=== PATIENT | male | born 1975 | race Caucasian/White ===

== ENCOUNTER 2021-10-05 11:37 | Inpatient (IN) | payer OTHER ==
[2021-10-05] MEDS ORDERED: BISMUTH SUBSALICYLATE 262 MG/15 ML BTL PO PRN (13:22)
[2021-10-05] MEDS ORDERED: ACETAMINOPHEN 325 MG TABLET (FP) PO PRN ×2 (13:22)
[2021-10-05] MEDS ORDERED: MAGNESIUM HYDROX 2400MG/30ML ORAL SUSPENSION 30 ML CUP PO PRN (13:22)
[2021-10-05] MEDS ORDERED: MAGNESIUM CITRATE 300 ML BOTTLE PO PRN (13:22)
[2021-10-05] MEDS ORDERED: methaDONE HCL 10 MG TABLET (FOR DETOX USE ONLY) PO ONE (13:22)
[2021-10-05] MEDS ORDERED: MENTHOL/PHENOL 1 EACH UD MM PRN (13:22)
[2021-10-05] MEDS ORDERED: ONDANSETRON *ODT* 4 MG TABLET SL PRN (13:22)
[2021-10-05] MEDS ORDERED: MAG HYDROX/AL HYDROX/SIMETH 30 ML UNIT-DOSE CUP PO PRN (13:22)
[2021-10-05 13:47] VITALS: BMI 26.3
[2021-10-05] MEDS: METHOCARBAMOL 500 MG TABLET PO PRN (15:49)
[2021-10-05] MEDS: hydrOXYzine PAMOATE 25 MG CAPSULE (FP) PO SCH ×3 (15:50→22:10)
[2021-10-05 16:46] LABS: HEMATOCRIT 40.4 % (35.4-49); HEMOGLOBIN 13.5 GM/dL (11.7-16.9); MCH 27.7 pg (25.7-33.7); MCHC 33.4 g/dl (32.0-35.9); MEAN CELL VOLUME 82.9 fl (80-96); RBC 4.87 M/mm3 (4.00-5.60); RDW 14.1 % (11.9-15.9); WHITE BLOOD COUNT 6.5 K/mm3 (4.0-10.0)
[2021-10-05 16:53] LABS: CALCIUM 9.5 mg/dL (8.5-10.1)
[2021-10-05 16:54] LABS: BLOOD UREA NITROGEN 7.4 mg/dL (7-18)
[2021-10-05 16:57] LABS: CREATININE 0.7 mg/dL (0.55-1.3)
[2021-10-05 16:58] LABS: TOT PROT 8.2 g/dl (6.4-8.2)
[2021-10-05 16:59] LABS: BILIRUBIN,TOTAL 0.4 mg/dL (0.2-1)
[2021-10-05] MEDS: NICOTINE 10 MG CARTRIDGE (INHALER) IH PRN (21:33)
[2021-10-05] MEDS ORDERED: MELATONIN 5 MG TABLETS PO SCH (22:00)
[2021-10-05] MEDS: THIAMINE HCL 100 MG TABLET (FP) PO SCH (22:10)
[2021-10-05] MEDS: SUVOREXANT 10 MG TABLET PO PRN (22:10)
[2021-10-06] MEDS: hydrOXYzine PAMOATE 25 MG CAPSULE (FP) PO SCH ×5 (07:09→22:05)
[2021-10-06] MEDS ORDERED: methaDONE HCL 10 MG TABLET (FOR DETOX USE ONLY) ONE (09:44)
[2021-10-06] MEDS: PRENATAL VITAMINS W/ FOLIC ACID TABLET (FP) PO SCH (10:21)
[2021-10-06] MEDS: NICOTINE 10 MG CARTRIDGE (INHALER) IH PRN ×3 (10:23→21:55)
[2021-10-06] MEDS: IBUPROFEN 400 MG TABLET (FP) PO PRN ×2 (10:25→17:56)
[2021-10-06] MEDS: SUVOREXANT 10 MG TABLET PO PRN (22:06)
[2021-10-06] MEDS: METHOCARBAMOL 500 MG TABLET PO PRN (22:06)
[2021-10-06] MEDS: cloNIDine HCL 0.1 MG TABLET PO PRN (22:06)
[2021-10-06] MEDS: THIAMINE HCL 100 MG TABLET (FP) PO SCH (22:07)
[2021-10-07] MEDS: hydrOXYzine PAMOATE 25 MG CAPSULE (FP) PO SCH ×5 (06:50→22:12)
[2021-10-07] MEDS ORDERED: methaDONE HCL 10 MG TABLET (FOR DETOX USE ONLY) PO ONE (10:00)
[2021-10-07] MEDS: METHOCARBAMOL 500 MG TABLET PO PRN ×2 (10:09→17:42)
[2021-10-07] MEDS: IBUPROFEN 400 MG TABLET (FP) PO PRN ×2 (10:10→17:43)
[2021-10-07] MEDS: PRENATAL VITAMINS W/ FOLIC ACID TABLET (FP) PO SCH (10:35)
[2021-10-07] MEDS: NICOTINE 10 MG CARTRIDGE (INHALER) IH PRN ×2 (11:18→17:41)
[2021-10-07] MEDS: SUVOREXANT 10 MG TABLET PO PRN (22:11)
[2021-10-07] MEDS: THIAMINE HCL 100 MG TABLET (FP) PO SCH (22:14)
[2021-10-07] MEDS: cloNIDine HCL 0.1 MG TABLET PO PRN (23:55)
[2021-10-08] MEDS: hydrOXYzine PAMOATE 25 MG CAPSULE (FP) PO SCH ×5 (06:13→22:18)
[2021-10-08] MEDS ORDERED: methaDONE HCL 10 MG TABLET (FOR DETOX USE ONLY) ONE (08:37)
[2021-10-08] MEDS: PRENATAL VITAMINS W/ FOLIC ACID TABLET (FP) PO SCH (10:09)
[2021-10-08] MEDS: IBUPROFEN 400 MG TABLET (FP) PO PRN ×2 (10:10→18:16)
[2021-10-08] MEDS: NICOTINE 10 MG CARTRIDGE (INHALER) IH PRN ×2 (18:17→22:20)
[2021-10-08] MEDS: THIAMINE HCL 100 MG TABLET (FP) PO SCH (22:18)
[2021-10-08 23:00] VITALS: BP 132/70; PULSE 58; TEMP 98.2
[2021-10-09] MEDS ORDERED: methaDONE HCL 10 MG TABLET (FOR DETOX USE ONLY) PO ONE (10:00)
== END 2021-10-08 23:54 | disposition left against medical advice (07) | DRG 770 ==
LOC: YASAS 11:37 → Y3N 14:57
PROVIDERS: ADMIT Allergy & Immunology; ATTEND Allergy & Immunology
PROC: HZ2ZZZZ Detoxification Services for Substance Abuse Treatment (ICD-10-PCS; principal; 2021-10-05)
DX: F11.23 Opioid dependence with withdrawal (principal); F17.210 Nicotine dependence, cigarettes, uncomplicated; F19.282 Other psychoactive substance dependence with psychoactive substance-induced sleep disorder; M06.9 Rheumatoid arthritis, unspecified; Z88.6 Allergy status to analgesic agent; Z56.0 Unemployment, unspecified
CPT/HCPCS: 36415; 80053; 85027; 86780; 93005; 93010; C9803; J0735; U0003; U0005

== ENCOUNTER 2021-10-27 11:42 | Inpatient (IN) | payer OTHER ==
[2021-10-27] MEDS ORDERED: MAG HYDROX/AL HYDROX/SIMETH 30 ML UNIT-DOSE CUP PO PRN (12:20)
[2021-10-27] MEDS ORDERED: ONDANSETRON *ODT* 4 MG TABLET SL PRN (12:20)
[2021-10-27] MEDS ORDERED: NICOTINE 10 MG CARTRIDGE (INHALER) IH PRN (12:20)
[2021-10-27] MEDS ORDERED: MENTHOL/PHENOL 1 EACH UD MM PRN (12:20)
[2021-10-27] MEDS ORDERED: cloNIDine HCL 0.1 MG TABLET PO PRN (12:20)
[2021-10-27] MEDS ORDERED: MAGNESIUM HYDROX 2400MG/30ML ORAL SUSPENSION 30 ML CUP PO PRN (12:20)
[2021-10-27] MEDS ORDERED: methaDONE HCL 10 MG TABLET (FOR DETOX USE ONLY) PO ONE (12:20)
[2021-10-27] MEDS ORDERED: BISMUTH SUBSALICYLATE 262 MG/15 ML BTL PO PRN (12:20)
[2021-10-27] MEDS ORDERED: LOPERAMIDE HCL 2 MG CAPSULE PO PRN (12:20)
[2021-10-27] MEDS ORDERED: MAGNESIUM CITRATE 300 ML BOTTLE PO PRN (12:20)
[2021-10-27] MEDS ORDERED: ACETAMINOPHEN 325 MG TABLET (FP) PO PRN ×2 (12:20)
[2021-10-27 12:39] VITALS: BMI 26.2
[2021-10-27] MEDS ORDERED: methaDONE HCL 10 MG TABLET (FOR DETOX USE ONLY) ONE (12:57)
[2021-10-27] MEDS: PRENATAL VITAMINS W/ FOLIC ACID TABLET (FP) PO SCH (14:06)
[2021-10-27] MEDS: hydrOXYzine PAMOATE 25 MG CAPSULE (FP) PO SCH ×3 (14:25→23:33)
[2021-10-27] MEDS: METHOCARBAMOL 500 MG TABLET PO PRN (23:33)
[2021-10-27] MEDS: THIAMINE HCL 100 MG TABLET (FP) PO SCH (23:33)
[2021-10-27] MEDS: MELATONIN 5 MG TABLETS PO SCH (23:33)
[2021-10-28] MEDS: hydrOXYzine PAMOATE 25 MG CAPSULE (FP) PO SCH ×5 (06:56→23:01)
[2021-10-28] MEDS: IBUPROFEN 400 MG TABLET (FP) PO PRN (07:04)
[2021-10-28] MEDS ORDERED: methaDONE HCL 10 MG TABLET (FOR DETOX USE ONLY) ONE (09:07)
[2021-10-28] MEDS: METHOCARBAMOL 500 MG TABLET PO PRN (09:27)
[2021-10-28] MEDS: PRENATAL VITAMINS W/ FOLIC ACID TABLET (FP) PO SCH (09:32)
[2021-10-28] MEDS: THIAMINE HCL 100 MG TABLET (FP) PO SCH (23:00)
[2021-10-28] MEDS: MELATONIN 5 MG TABLETS PO SCH (23:00)
[2021-10-29] MEDS: METHOCARBAMOL 500 MG TABLET PO PRN (05:51)
[2021-10-29] MEDS: hydrOXYzine PAMOATE 25 MG CAPSULE (FP) PO SCH ×4 (05:51→23:06)
[2021-10-29] MEDS: IBUPROFEN 400 MG TABLET (FP) PO PRN (05:53)
[2021-10-29] MEDS ORDERED: methaDONE HCL 10 MG TABLET (FOR DETOX USE ONLY) PO ONE (10:00)
[2021-10-29] MEDS: PRENATAL VITAMINS W/ FOLIC ACID TABLET (FP) PO SCH (13:36)
[2021-10-29 14:06] LABS: SARS-CoV-2 NAA Not Detected (Not Detected)
[2021-10-29] MEDS: THIAMINE HCL 100 MG TABLET (FP) PO SCH (23:07)
[2021-10-29] MEDS: SUVOREXANT 15 MG TABLET PO PRN (23:12)
[2021-10-30] MEDS: METHOCARBAMOL 500 MG TABLET PO PRN (05:06)
[2021-10-30] MEDS: IBUPROFEN 400 MG TABLET (FP) PO PRN (05:06)
[2021-10-30] MEDS: hydrOXYzine PAMOATE 25 MG CAPSULE (FP) PO SCH ×5 (05:06→22:48)
[2021-10-30 10:39] LABS: ALBUMIN 3.4 g/dl (3.4-5.0)
[2021-10-30 10:42] LABS: CREATININE 0.8 mg/dL (0.55-1.3)
[2021-10-30 10:44] LABS: BILIRUBIN,TOTAL 0.4 mg/dL (0.2-1); TOT PROT 7.2 g/dl (6.4-8.2)
[2021-10-30] MEDS ORDERED: methaDONE HCL 10 MG TABLET (FOR DETOX USE ONLY) ONE (10:45)
[2021-10-30] MEDS: PRENATAL VITAMINS W/ FOLIC ACID TABLET (FP) PO SCH (10:48)
[2021-10-30 10:52] LABS: HEMATOCRIT 40.1 % (35.4-49); MCH 26.7 pg (25.7-33.7); MCHC 32.5 g/dl (32.0-35.9); MEAN CELL VOLUME 82.1 fl (80-96); MEAN PLT VOLUME 9.4 fl (7.5-11.1); PLATELET COUNT 210 10^3/uL (134-434); RBC 4.88 M/mm3 (4.00-5.60); RDW 14.2 % (11.9-15.9); WHITE BLOOD COUNT 4.3 K/mm3 (4.0-10.0)
[2021-10-30] MEDS: SUVOREXANT 15 MG TABLET PO PRN (22:44)
[2021-10-30] MEDS: THIAMINE HCL 100 MG TABLET (FP) PO SCH (22:44)
[2021-10-31] MEDS: hydrOXYzine PAMOATE 25 MG CAPSULE (FP) PO SCH ×2 (06:11→11:06)
[2021-10-31] MEDS: PRENATAL VITAMINS W/ FOLIC ACID TABLET (FP) PO SCH (09:44)
[2021-10-31] MEDS ORDERED: methaDONE HCL 10 MG TABLET (FOR DETOX USE ONLY) PO ONE (10:00)
[2021-10-31 13:14] VITALS: BP 132/68; PULSE 100; TEMP 97.1
== END 2021-10-31 13:28 | disposition home or self-care (01) | DRG 773 ==
LOC: YASAS 11:42 → Y6N 12:54
PROVIDERS: ADMIT Allergy & Immunology; ATTEND Allergy & Immunology
PROC: HZ2ZZZZ Detoxification Services for Substance Abuse Treatment (ICD-10-PCS; principal; 2021-10-27)
DX: F11.23 Opioid dependence with withdrawal (principal); F14.20 Cocaine dependence, uncomplicated; F12.20 Cannabis dependence, uncomplicated; F17.210 Nicotine dependence, cigarettes, uncomplicated; F19.282 Other psychoactive substance dependence with psychoactive substance-induced sleep disorder; U07.1 COVID-19; M06.9 Rheumatoid arthritis, unspecified; M54.30 Sciatica, unspecified side; Z88.6 Allergy status to analgesic agent
CPT/HCPCS: 36415; 80053; 85027; 86780; C9803; U0003; U0005

== ENCOUNTER 2022-12-21 09:33 | Inpatient (IN) | payer OTHER ==
[2022-12-21 09:59] VITALS: BMI 27.2
[2022-12-21] MEDS ORDERED: NALOXONE HCL (KLOXXADO) 8 MG SPRAY NS PRN (10:25)
[2022-12-21] MEDS ORDERED: COLLOIDAL OATMEAL 1 BAR EACH TP PRN (10:25)
[2022-12-21] MEDS ORDERED: IBUPROFEN 600 MG TABLET (FP) PO PRN (10:25)
[2022-12-21] MEDS ORDERED: TUBERCULIN PPD 5 TU/0.1ML SYRINGE (IN PATIENT USE ONLY) ID ONE (10:25)
[2022-12-21] MEDS ORDERED: BENZONATATE 200 MG CAPSULE PO PRN (10:25)
[2022-12-21] MEDS ORDERED: guaiFENesin 600 MG TABLET.ER (FP) PO PRN (10:25)
[2022-12-21] MEDS ORDERED: BENZOCAINE/MENTHOL (CHLORASEPTIC ) LOZENGE MM PRN (10:25)
[2022-12-21] MEDS ORDERED: MAGNESIUM HYDROX 2400MG/30ML ORAL SUSPENSION 30 ML CUP PO PRN (10:25)
[2022-12-21] MEDS ORDERED: NICOTINE 10 MG CARTRIDGE (INHALER) IH PRN (10:25)
[2022-12-21] MEDS ORDERED: POLYETHYLENE GLYCOL (HEALTHYLAX) 3350 17 GM PACKET PO PRN (10:25)
[2022-12-21] MEDS ORDERED: MAG HYDROX/AL HYDROX/SIMETH 30 ML UNIT-DOSE CUP PO PRN (10:25)
[2022-12-21] MEDS ORDERED: LOPERAMIDE HCL 2 MG CAPSULE PO PRN (10:25)
[2022-12-21] MEDS ORDERED: ACETAMINOPHEN 325 MG TABLET (FP) PO PRN (10:25)
[2022-12-21] MEDS ORDERED: AMMONIUM LACTATE 12% LOTION 225 GM BOTTLE TP PRN (10:25)
[2022-12-21] MEDS ORDERED: NALOXONE HCL 0.4 MG/ML VIAL IM PRN (10:25)
[2022-12-21] MEDS ORDERED: NICOTINE 14 MG/24 HOURS TOPICAL PATCH TD ONE (11:23)
[2022-12-21] MEDS ORDERED: PRENATAL VITAMINS W/ FOLIC ACID TABLET (FP) PO ONE (11:23)
[2022-12-21] MEDS: PRENATAL VITAMINS W/ FOLIC ACID TABLET (FP) PO SCH (11:28)
[2022-12-21] MEDS: NICOTINE 14 MG/24 HOURS TOPICAL PATCH TD SCH (11:28)
[2022-12-21] MEDS ORDERED: methaDONE HCL 10 MG TABLET PO SCH (11:30)
[2022-12-21] MEDS: methaDONE 80 MG, methaDONE 10 MG PO SCH (12:10)
[2022-12-21] MEDS ORDERED: TUBERCULIN PPD 5 TU/0.1ML VIAL ID ONE (14:05)
[2022-12-21 14:53] VITALS: RESP 18
[2022-12-21 16:01] LABS: HEMATOCRIT 40.8 % (35.4-49); HEMOGLOBIN 13.4 GM/dL (11.7-16.9); MCH 25.7 pg (25.7-33.7); MCHC 32.8 g/dl (32.0-35.9); MEAN CELL VOLUME 78.4 fl (80-96); RBC 5.21 M/mm3 (4.00-5.60); RDW 16.7 % (11.9-15.9); WHITE BLOOD COUNT 6.3 K/mm3 (4.0-10.0)
[2022-12-21 16:02] LABS: CALCIUM 9.3 mg/dL (8.5-10.1)
[2022-12-21 16:03] LABS: ALBUMIN 3.5 g/dl (3.4-5.0)
[2022-12-21 16:05] LABS: BILIRUBIN,TOTAL 0.3 mg/dL (0.2-1); CREATININE 0.8 mg/dL (0.55-1.3); TOT PROT 7.6 g/dl (6.4-8.2)
[2022-12-21 16:23] LABS: SYPHILIS W/ RPR CONF NON-REACTIVE (NONREACTIVE)
[2022-12-21] MEDS: IBUPROFEN 400 MG TABLET (FP) PO PRN (20:49)
[2022-12-21] MEDS: hydrOXYzine PAMOATE 25 MG CAPSULE (FP) PO PRN (20:50)
[2022-12-21] MEDS: MELATONIN 5 MG TABLETS PO SCH (22:36)
[2022-12-21] MEDS: THIAMINE HCL 100 MG TABLET (FP) PO SCH (22:36)
[2022-12-22] MEDS: methaDONE 80 MG, methaDONE 10 MG PO SCH (06:47)
[2022-12-22] MEDS: PRENATAL VITAMINS W/ FOLIC ACID TABLET (FP) PO SCH (10:04)
[2022-12-22] MEDS: NICOTINE 14 MG/24 HOURS TOPICAL PATCH TD SCH (10:04)
[2022-12-22] MEDS: hydrOXYzine PAMOATE 25 MG CAPSULE (FP) PO PRN (21:18)
[2022-12-22] MEDS: THIAMINE HCL 100 MG TABLET (FP) PO SCH (21:18)
[2022-12-22] MEDS: MELATONIN 5 MG TABLETS PO SCH (21:18)
[2022-12-22] MEDS: IBUPROFEN 400 MG TABLET (FP) PO PRN (21:19)
[2022-12-23] MEDS: methaDONE 80 MG, methaDONE 10 MG PO SCH (06:20)
[2022-12-23] MEDS: NICOTINE 14 MG/24 HOURS TOPICAL PATCH TD SCH (09:27)
[2022-12-23] MEDS: PRENATAL VITAMINS W/ FOLIC ACID TABLET (FP) PO SCH (09:27)
[2022-12-23 10:02] LABS: PH,URINE 6.5 (5.0-8.0); URINE APPEARANCE CLEAR; URINE BILIRUBIN NEGATIVE (NEGATIVE); URINE COLOR YELLOW; URINE GLUCOSE (UA) NEGATIVE (NEGATIVE); URINE KETONE NEGATIVE (NEGATIVE); URINE LEUK ESTERASE NEGATIVE (NEGATIVE); URINE NITRITE NEGATIVE (NEGATIVE); URINE PROTEIN NEGATIVE (NEGATIVE); URINE UROBILINOGEN 0.2 mg/dL (0.2-1.0)
[2022-12-23] MEDS: MELATONIN 5 MG TABLETS PO SCH (21:07)
[2022-12-23] MEDS: THIAMINE HCL 100 MG TABLET (FP) PO SCH (21:08)
[2022-12-24] MEDS: methaDONE 80 MG, methaDONE 10 MG PO SCH (05:50)
[2022-12-24 06:42] VITALS: BP 126/83; PULSE 82; TEMP 97.7
[2022-12-24] MEDS ORDERED: METHOCARBAMOL 500 MG TABLET PO PRN (09:27)
[2022-12-24] MEDS: NICOTINE 14 MG/24 HOURS TOPICAL PATCH TD SCH (09:33)
[2022-12-24] MEDS: PRENATAL VITAMINS W/ FOLIC ACID TABLET (FP) PO SCH (09:44)
[2022-12-24] MEDS ORDERED: METHOCARBAMOL 500 MG TABLET PO SCH (14:00)
== END 2022-12-24 05:56 | disposition left against medical advice (07) | DRG 770 ==
LOC: YASAS 09:33 → Y5N 13:09
PROVIDERS: ADMIT Allergy & Immunology; ATTEND Psychiatry & Neurology Pain Medicine
PROC: HZ42ZZZ Group Counseling for Substance Abuse Treatment, Cognitive-Behavioral (ICD-10-PCS; principal; 2022-12-21)
DX: F11.20 Opioid dependence, uncomplicated (principal); F14.20 Cocaine dependence, uncomplicated; F17.210 Nicotine dependence, cigarettes, uncomplicated; Z28.310 Unvaccinated for COVID-19; Z28.9 Immunization not carried out for unspecified reason; Z88.6 Allergy status to analgesic agent
CPT/HCPCS: 36415; 80053; 81003; 85027; 86780; 86803; C9803-CS; U0003; U0005